=== PATIENT | male | born 1960 | race Caucasian/White ===

== ENCOUNTER 2017-03-08 07:32 | Emergency (ER) | payer SELFPAY ==
--- NOTE | 2017-03-08 08:25 | ERNOTE ---
Lower Extremity HPI - General Lower Extremities Pain: foot: right Time Seen by Provider: 03/08/17 08:07 Source: patient Exam Limitations: no limitations - Immun/Allergies/Home Medications Immunizations: IMMUNIZATION HX History of Influenza Vaccine No Hx Pneumococcal Vaccination No Allergies/Adverse Reactions: Allergies Allergy/AdvReac Type Severity Reaction Status Date / Time No Known Allergies Allergy Verified 03/08/17 07:43 Home Medications: HOME MEDICATIONS Acetaminophen with Codeine [Tylenol with Codeine #3 Tablet] 1 - 2 tab PO Q4H PRN #20 tab 03/08/17 [Last Taken Unknown] Indomethacin [Indocin] 25 mg PO TID #20 cap 03/08/17 [Last Taken Unknown] predniSONE [Deltasone] 20 mg PO BID #10 tablet 03/08/17 [Last Taken Unknown] - History of Present Illness Narrative: Patient has a long-standing history of gout and was eating hamburger and had another flare. The bulk of his pain is in the MTP joint of the first digit on the right foot, and is at least moderate in severity. Occurred: yesterday Method of Injury: Reports: no apparent injury Modifying Factors - (Improves): Reports: other - some sort of medication Associated Symptoms: Reports: unable to bear weight - painful weightbearing Other Injuries: Reports: none Prior Treament: Reports: similar symptoms before - gout Review of Systems - Review of Systems Constitutional: Present: See HPI EYE: Present: no symptoms reported ENT: Present: no symptoms reported Respiratory: Present: no symptoms reported Cardiology: Present: no symptoms reported Gastrointestinal/Abdominal: Present: no symptoms reported Genitourinary: Present: no symptoms reported Musculoskeletal: Present: joint pain Skin: Present: no symptoms reported Neurological: Present: no symptoms reported Endocrine: Present: no symptoms reported Hematologic/Lymphatic: Present: no symptoms reported Psych: Present: no symptoms reported - Patient's Past Medical History Patient History - Medical: No pertinent hx, Other - gout Patient History - Cardiac/Respiratory: No pertinent hx Patient History - Cancer: No Hx of Cancer Patient History - Surgical Procedures: No surgical history, Other Patient History - Other: None - Family History mom Family History - Medical: Family History - Cardiac/Respiratory: Aneurysm dad Family History - Medical: , History Unknown Family History - Cardiac/Respiratory: Pneumonia - Social History Living Situations: home Abuse History: No History of abuse Psych History: No pertinent hx Alcohol Use: none Drug Use: none - Immunizations Hx Pneumococcal Vaccination: No History of Influenza Vaccine: No Physical Exam - Physical Exam General Appearance: Present: wd/wn, alert, moderate distress Head Exam: Present: normal inspection Eye Exam: Normal inspection: bilateral, PERRL: bilateral Ears, Nose, Throat: Present: normal ENT inspection, H, normal pharynx Neck: Present: normal inspection, nontender Respiratory: Present: no respiratory distress, normal breath sounds, no accessory muscle use, chest nontender, lungs clear Cardiovascular/Chest: Present: regular rate, rhythm, no murmur, normal peripheral pulses Gastrointestinal/Abdominal: Present: normal bowel sounds, nontender, nondistended, soft, no organomegaly Rectal Exam: Present: deferred Back Exam: Present: normal inspection, normal range of motion Extremity Exam: Present: decreased range of motion, joint redness, joint swelling, extremity edema - all of the right foot MTP joint first digit Neurological Exam: Present: alert, oriented, normal mood/affect Skin Exam: Present: normal color, warm/dry Lymphatic Exam: Present: no adenopathy ED Progress - Vital Signs Patient's Vital Signs:: I have reviewed the patient's vital signs. Vital Signs: Vital Signs 03/08/17 07:40 Temperature 37.0 C Pulse Rate 91 Respiratory 12 Rate Blood Pressure 170/99 O2 Sat by Pulse 98 Oximetry - Progress/Reassessment Chief Complaint: Lower Extremity Pain/ Injury Plan - Plan Plan: Patient has known gout and will be treated with NSAIDs, prednisone and Tylenol 3 for the pain Departure Clinical Impression: Gout attack Qualifiers: Gout site: foot Gout etiology: other secondary cause Laterality: right Qualified Code(s): M10.471 - Other secondary gout, right ankle and foot - Departure Disposition: Home self-care Condition: Good Instructions: Low-Purine Diet, Gout, [id number] Prescriptions: Acetaminophen with Codeine [Tylenol with Codeine #3 Tablet] 1 - 2 tab PO Q4H PRN #20 tab PRN Reason: Pain Indomethacin [Indocin] 25 mg PO TID #20 cap predniSONE [Deltasone] 20 mg PO BID #10 tablet
[2017-03-08 08:31] VITALS: BP 134/86
== END 2017-03-08 08:32 | disposition home or self-care (01) ==
LOC: ER 07:32
DX: M10.471 Other secondary gout, right ankle and foot (principal)

== ENCOUNTER 2017-03-09 08:15 | Emergency (ER) | payer SELFPAY ==
[2017-03-09 08:32] VITALS: BP 151/89
[2017-03-09] MEDS ORDERED: KETOROLAC TROMETHAMINE 60 MG/2 ML VIAL IM ONE ×2 (08:33→08:37)
[2017-03-09 08:47] LABS: Hematocrit 44.3 % (42.0-52.0); Hemoglobin 15.4 gm/dL (13.5-18.0); Mean Cell Volume 89.1 fl (78-100); Mean Corpuscular Hgb Conc 34.8 g/dl (32-36); Mean Platelet Volume 9.7 fl (6.0-9.5); Neutrophil # 6.9 K/mm3 (1.3-6.0); Platelet Count 238 K/mm3 (150-450); Red Blood Count 4.97 M/mm3 (4.7-6.0); Red Cell Distribution Width 12.3 % (11.5-14.0); White Blood Count 9.6 K/mm3 (4.0-10.5)
[2017-03-09 09:02] LABS: Albumin * 3.9 gm/dl (3.4-5.0); Anion Gap 15.7 mmol/L (6.8-13.8); BUN/Creatinine Ratio 12.1 (9.0-21.6); Bilirubin, Total 1.5 mg/dL (0.0-1.1); CRP 5.1 mg/dL (0.0-0.9); Calcium * 9.2 mg/dL (7.9-10.9); Carbon Dioxide 25.9 mmol/L (24-32.6); Potassium 3.6 mmol/L (3.4-4.6); Total Protein 7.8 gm/dL (6.2-8.2); Uric Acid 8.2 mg/dL (2.6-7.2)
--- NOTE | 2017-03-09 09:12 | ERNOTE ---
Lower Extremity HPI - General Lower Extremities Pain: foot: right Time Seen by Provider: 03/09/17 08:26 Source: patient Exam Limitations: no limitations - Immun/Allergies/Home Medications Immunizations: IMMUNIZATION HX Immunizations Up to Date Yes History of Influenza Vaccine No Hx Pneumococcal Vaccination No Allergies/Adverse Reactions: Allergies Allergy/AdvReac Type Severity Reaction Status Date / Time No Known Allergies Allergy Verified 03/09/17 08:45 Home Medications: HOME MEDICATIONS Acetaminophen with Codeine [Tylenol with Codeine #3 Tablet] 1 - 2 tab PO Q4H PRN #20 tab 03/08/17 [Last Taken Unknown] Indomethacin [Indocin] 25 mg PO TID #20 cap 03/08/17 [Last Taken Unknown] predniSONE [Deltasone] 20 mg PO BID #10 tablet 03/08/17 [Last Taken Unknown] - History of Present Illness Narrative: Patient presents with continuing gout pain in the right great toe, however he did not go directions and 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 He did however feel his prescription for Tylenol 3 and he is still having considerable pain. Occurred: last week Method of Injury: Reports: no apparent injury Loss of Consciousness: Reports: no loss of consciousness Associated Symptoms: Reports: unable to bear weight - without considerable pain in the right foot Other Injuries: Reports: none Review of Systems - Review of Systems Constitutional: Present: See HPI EYE: Present: no symptoms reported ENT: Present: no symptoms reported Respiratory: Present: no symptoms reported Cardiology: Present: no symptoms reported Gastrointestinal/Abdominal: Present: no symptoms reported Genitourinary: Present: no symptoms reported Musculoskeletal: Present: See HPI, joint pain Skin: Present: no symptoms reported Neurological: Present: no symptoms reported Endocrine: Present: no symptoms reported Hematologic/Lymphatic: Present: no symptoms reported Psych: Present: no symptoms reported - Patient's Past Medical History Patient History - Medical: No pertinent hx, Other - gout Patient History - Cardiac/Respiratory: No pertinent hx Patient History - Cancer: No Hx of Cancer Patient History - Surgical Procedures: No surgical history, Other Patient History - Other: None - Family History mom Family History - Medical: Family History - Cardiac/Respiratory: Aneurysm dad Family History - Medical: , History Unknown Family History - Cardiac/Respiratory: Pneumonia - Social History Living Situations: alone Abuse History: No History of abuse Psych History: No pertinent hx Smoking Status: Never smoker Alcohol Use: none Drug Use: none - Immunizations Immunizations Up to Date: Yes Hx Pneumococcal Vaccination: No History of Influenza Vaccine: No Physical Exam - Physical Exam General Appearance: Present: wd/wn, alert, moderate distress Head Exam: Present: normal inspection Eye Exam: Normal inspection: bilateral, PERRL: bilateral Ears, Nose, Throat: Present: normal ENT inspection, H, normal pharynx Neck: Present: normal inspection, nontender Respiratory: Present: no respiratory distress, normal breath sounds, no accessory muscle use, chest nontender, lungs clear Cardiovascular/Chest: Present: regular rate, rhythm, no murmur, normal peripheral pulses Gastrointestinal/Abdominal: Present: normal bowel sounds, nontender, nondistended, soft, no organomegaly Rectal Exam: Present: deferred Back Exam: Present: normal inspection, normal range of motion Extremity Exam: Present: decreased range of motion, joint redness, joint swelling Neurological Exam: Present: alert, oriented, normal mood/affect Skin Exam: Present: normal color, warm/dry Lymphatic Exam: Present: no adenopathy ED Progress - Results and Orders Patient's Lab Results:: I have reviewed the patient's lab results. - Vital Signs Patient's Vital Signs:: I have reviewed the patient's vital signs. Vital Signs: Vital Signs 03/09/17 08:24 Temperature 36.9 C Pulse Rate 92 Respiratory 16 Rate Blood Pressure 151/89 - X-Ray X-Ray #1 X-Ray: foot Interpretation: Reviewed by me - Progress/Reassessment Chief Complaint: Foot Injury/Pain Plan - Plan Plan: It was reinforced to the patient that he needs to go to the pharmacy to pickling solution maker his prescription for Indocin and prednisone. I believe he understands this now , and he was also told that he needs to change his diet drastically if he wishes to help speed along the resolution of this attack of gout. Departure Clinical Impression: Gout attack Qualifiers: Gout site: foot Encounter type: subsequent encounter Laterality: right - Departure Disposition: Home self-care Condition: Good Instructions: Gout, [id number]
== END 2017-03-09 09:21 | disposition home or self-care (01) ==
LOC: ER 08:15
DX: M10.9 Gout, unspecified (principal)